=== PATIENT | female | born 1975 | race Two or more races ===

== ENCOUNTER 2017-06-21 06:12 | Day surgery (SDC) | payer SELFPAY ==
[2017-06-10 14:40] VITALS: BMI 27.7
[2017-06-21] MEDS ORDERED: HEPARIN NA (PORCINE) 5,000 UNITS/ML 1ML VIAL ONE (06:56)
[2017-06-21] MEDS ORDERED: LIDOCAINE HCL 1%, 10 MG/ML (20ML VIAL) ONE (07:36)
[2017-06-21] MEDS ORDERED: BUPIVACAINE HCL/PF 2.5 MG/ML - 30 ML VIAL IJ ONE (07:36)
[2017-06-21] MEDS ORDERED: BACITRACIN 15 GM TUBE TOPICAL OINTMENT ONE (07:36)
[2017-06-21] MEDS ORDERED: fentaNYL CITRATE 250 MCG/5 ML VIAL ONE (07:43)
[2017-06-21] MEDS ORDERED: MIDAZOLAM HCL 2 MG/2 ML SINGLE DOSE VIAL ONE (07:43)
[2017-06-21] MEDS ORDERED: PROPOFOL 20 ML ONE ×5 (07:44→11:26)
[2017-06-21] MEDS ORDERED: ROCURONIUM BROMIDE 50 MG/5 ML VIAL ONE (07:44)
[2017-06-21] MEDS ORDERED: SUCCINYLCHOLINE CHLORIDE 200 MG/10 ML VIAL ONE (07:46)
[2017-06-21] MEDS ORDERED: DESFLURANE GAS 240 ML BOTTLE IH ONE (07:53)
[2017-06-21] MEDS ORDERED: LIDOCAINE HCL/PF 2% SDV 5ML VIAL ONE ×2 (08:47→11:35)
[2017-06-21] MEDS ORDERED: ONDANSETRON 4 MG/2 ML VIAL ONE ×3 (08:48→14:07)
[2017-06-21] MEDS ORDERED: HYDROmorphone HCL/PF 1 MG/ML VIAL (FOR PYXIS CHARGING ONLY) ONE ×2 (09:33→10:15)
[2017-06-21] MEDS ORDERED: DEXAMETHASONE SOD PHOSPHATE 4 MG/1 ML VIAL ONE ×2 (09:47)
[2017-06-21] MEDS ORDERED: NEOSTIGMINE METHYLSULFATE 0.5 MG/ML - 10 ML MDV ONE (11:23)
[2017-06-21] MEDS ORDERED: GLYCOPYRROLATE 0.2 MG/1 ML VIAL ONE ×2 (11:23→11:46)
[2017-06-21] MEDS ORDERED: ONDANSETRON 4 MG/2 ML VIAL IVPB PRN (12:46)
--- NOTE | 2017-06-21 12:49 | OP ---
Operative Note - Note: Operative Date: 06/21/17 Pre-Operative Diagnosis: cosmetic Operation: abdominoplasty with liposuction Post-Operative Diagnosis: Same as Pre-op Surgeon: Jayme David Anesthesia: General Estimated Blood Loss (mls): 50 Drains, Volume Out (mls): 2 Operative Report Dictated: Yes
[2017-06-21] MEDS ORDERED: ACETAMINOPHEN 1000 MG/100 ML VIAL (NON FORMULARY) IVPB ONE (13:00)
[2017-06-21] MEDS: HYDROmorphone HCL CARPU-JECT 1 MG/1 ML DISP.SYRIN IVPUSH PRN ×2 (13:25→13:55)
[2017-06-21] MEDS ORDERED: HYDROmorphone HCL CARPU-JECT 1 MG/1 ML DISP.SYRIN ONE (13:27)
[2017-06-21] MEDS ORDERED: IPRATROPIUM BR 0.02% 0.5 MG/2.5 ML VIAL.NEB. NEB ONE (13:40)
[2017-06-21] MEDS ORDERED: ALBUTEROL SO4 0.083% IH SOL 2.5 MG/3 ML VIAL.NEB. NEB ONE (13:40)
[2017-06-21] MEDS ORDERED: ALBUTEROL SO4 2.5/IPRATROPIUM 0.5 INH SOL 3 ML VIAL.NEB. NEB PRN (13:42)
--- NOTE | 2017-06-21 13:49 | PN ---
Progress Note (short form) - Note Progress Note: Anesthesia PACU note Pat has a cough. clear, with some upper left ronchi, phlegm. Based on patient she had a slight cold and cough this morning. Will put Duo neb treatment, Q 6 hrs prn.
[2017-06-21] MEDS: LACTATED RINGERS SOLUTION 1,000 ML IV SCH (15:51)
[2017-06-21] MEDS: CEFAZOLIN 1 GM/D5W 1 GRAM/50 ML BAG IVPB SCH ×2 (16:00→20:58)
[2017-06-21] MEDS: morphine CARPU-JECT 2 MG/1 ML DISP.SYRIN IVPUSH PRN ×2 (16:01→20:58)
[2017-06-21] MEDS: ONDANSETRON 4 MG/2 ML VIAL IVPUSH PRN (19:43)
--- NOTE | 2017-06-21 21:10 | OP ---
DATE OF OPERATION: 06/21/2017 TITLE OF PROCEDURE: Abdominoplasty with abdominal liposuction. ATTENDING SURGEON: Jayme David MD ASSISTANTS: None. ANESTHESIA: General endotracheal. Patient is seen in the holding area, awake, aware of all incisions and resulting scars. She is given 5000 units of subcutaneous heparin preoperatively. A gram of Ancef was given preoperatively. Sequential compression stockings and LAQUITA hose are applied preoperatively. She is counseled on all risks, benefits, and alternatives as well as limitations to the procedure, understands, agrees to proceed. DESCRIPTION OF PROCEDURE: She was brought to the operating room, placed in supine position. Valdes catheter is placed, which is removed at the end of the procedure. The general anesthesia is given. Patient is prepped and draped in standard surgical fashion. Position is carefully checked by surgical and anesthesia teams. All pressure points are carefully padded. A pillow is placed beneath the knees. Egg crate is used as needed. Arms are secured. The patient had been noted preoperatively in the holding area to have a scrape on the anterior surface of the abdomen, which she stated was the result of a minor trauma that she had over the weekend and was healing uneventfully. The timeout was called. Patient, procedure, site, and side were verified. Procedure as follows: Incision is made along the infrapannicular crease just inferior to the scar. Dissection was carried down to the level of the abdominal wall fascia where a dissection is then continued along the abdominal wall fascia to the level of the umbilicus. The umbilicus is then circumcised, developed on a fibrofatty stalk, and the abdominoplasty flaps are then developed around the umbilicus, leaving a wide vascularized stalk for the umbilicus. The elevation continues to the xiphoid process and the midline costal margins bilaterally. Hemostasis then meticulously achieved. At this point, midline plication is performed with first a series of interrupted, buried, [id number] 1 Prolene sutures within the fascia, followed by running locking 1 Prolene suture both inferior and superior to the umbilicus. Several interrupted 1 Prolenes are placed in areas of higher tension. Smooth, even tension along the abdominal fascia is the endpoint. The abdominoplasty flap is then elevated, and it is trimmed of the subscarpa's fat uniformly. Hemostasis is then meticulously achieved, and copious irrigation with normal saline is performed. At this point, the patient is brought to a flexed position where excess skin and fat are marked, and the excess is trimmed. Skin is tailor tacked. The umbilicus is then marked for its location of translocation. After this, a Star Trek pattern incision is made of the abdominal wall skin. The core of tissue deep to this incision is removed, and the umbilicus is then translocated through this incision. A 6 o'clock pie wedge is cut from the umbilicus to accept the 6 o'clock flap on the abdominoplasty skin. The umbilicus is inset with a series of interrupted, buried, 3-0 Monocryl suture, followed by a series of interrupted 4-0 nylon suture at the apices and a running 5-0 nylon suture along the limbs of the pattern. Size 10 flat RAY drain is brought out through lateral extents of the incisions, secured with a 2-0 silk drain suture. The right drain is on the superior portion of the abdomen; left drain is on the inferior portion of the abdomen. The patient is then infiltrated in preparation for superior epigastric liposuction. This is done with a total of 100 mL of infiltration fluid which is a liter of normal saline, 1 ampule of 1:1000 epinephrine, and 20 mL of 1% lidocaine plain. The abdominal wall closure is being performed for 20 minutes while the infiltration fluid is working. Closure is performed with a series of interrupted, superficial fascial system; Phill layer buried 2-0 Vicryl suture, followed by a series of interrupted, buried deep dermal 3-0 Monocryl suture. At this point, liposuction is performed with a standard 3-mm cannula using basic [id number] liposuction of the superior epigastrium near the midline. Care was taken to not continue into the right or left upper lateral quadrants in order to preserve blood supply. The total liposuction aspirate was 50 mL of liposuction aspirate from the superior epigastrium. Endpoint is smooth, even contour. The distal skin at the closure is seen to be bleeding with bright red blood from the dermal edges. The skin is then finally approximated with a running subcuticular 3-0 Monocryl suture, followed by a series of interrupted 5-0 nylon suture in certain areas. Dressings are applied with Steri-Strips along the length of the incision. Bacitracin and Xeroform to the umbilicus; 4 x 4, ABD gauze, and an abdominal binder are applied. Valdes is removed at the end of the case. Patient is transferred to her hospital bed in a flexed position, transferred to the recovery room in flexed position, having tolerated the procedure well. Drains were placed to bulb suction. Claudette BERMUDEZ/[id number]
[2017-06-22] MEDS: oxyCODONE HCL 5 MG TABLET PO PRN ×3 (00:43→16:28)
[2017-06-22] MEDS: ONDANSETRON 4 MG/2 ML VIAL IVPUSH PRN (01:05)
[2017-06-22] MEDS: CEFAZOLIN 1 GM/D5W 1 GRAM/50 ML BAG IVPB SCH ×3 (02:08→14:49)
--- NOTE | 2017-06-22 08:19 | PN ---
Progress Note (short form) - Note Progress Note: POD 1, no complications, all tissues viable, no collections, VSS AF, ambulating , trial of PO this morning. OK for discharge this morning. follow up one week.
[2017-06-22] MEDS ORDERED: HEPARIN NA (PORCINE) 5,000 UNITS/ML 1ML VIAL SQ SCH (09:00)
--- NOTE | 2017-06-22 14:34 | PN ---
Progress Note (short form) - Note Progress Note: 41F POD1 s/p abdominoplasty under [facility]-ETT doing well. Pt states that pain is controlled, denies any anesthetic complications. AVSS.
[2017-06-22] MEDS: LACTATED RINGERS SOLUTION 1,000 ML IV SCH (15:22)
[2017-06-22 17:08] VITALS: BP 106/63; PULSE 70; TEMP 98.9
== END 2017-06-22 16:45 | disposition home or self-care (01) ==
LOC: FASU 06:12 → FM/S 15:06 → FASU 06-22 16:45
PROVIDERS: ATTEND Plastic Surgery
PROC: 0J083ZZ Alteration of Abdomen Subcutaneous Tissue and Fascia, Percutaneous Approach (ICD-10-PCS; 2017-06-21)
PROC: 0J080ZZ Alteration of Abdomen Subcutaneous Tissue and Fascia, Open Approach (ICD-10-PCS; principal; 2017-06-21 08:47)
DX: Z41.1 Encounter for cosmetic surgery (principal)
CPT/HCPCS: 84703; 94010; 94640; 94760; J1644